=== PATIENT | female | born 1965 | race Caucasian/White ===

== ENCOUNTER → 2022-03-25 11:37 | Outpatient (CLI) | payer OTHER, SELFPAY ==
--- NOTE | 2022-03-25 12:27 | NM_ITS ---
APPROVED REPORT Exam: Nuclear Stress Test Indication: CHF, HTN, D.M., HYPERLIPIDEMIA, D.M., TOB USE, FM HX., SOB, FATIGUE Patient Location: Outpatient Stress Tech: Nan Llanos [place] Tech:Gillian Barfield, ARRT, RT (R)(N) Ht: 4 ft 9 in Wt: 152 lbs Bra Size: 34C HR: 84 bpm BP: 123/83 mmHg BSA: 1.60 m2 TID: 1.42 BMI: 32.8 History: CHF, HTN, D.M., HYPERLIPIDEMIA, D.M., TOB USE, FM HX., SOB, FATIGUE Procedure: Patient received a 0.4 mg of intravenous Lexiscan, resting heart rate 84 bpm, resting blood pressure 123/83 mmHg, with Lexiscan maximum heart rate achived was 102 bpm which is Less than 85 % of the maximum predicted heart rate and blood pressure was 140/85 mmHg. With Lexiscan, patient denied any complaint of chest pain. Electrocardiogram Resting electrocardiogram shows sinus rhythm, with Lexiscan there is less than 1.[address] segment depression noted from the baseline EKG. The EKG portion of the Lexiscan is nondiagnostic. Cardiac Stress and Resting SPECT Images: Cardiac Stress and Resting SPECT images were obtained using technetium 99m Myoview 29.8 mCi stress and 9.70 mCi at rest. Gated SPECT for analysis of segmental wall motion and calculation of the ejection fraction also done. Prone images were also obtained. Cardiac stress and rest SPECT images show uniform myocardial activity without segmental perfusion abnormality, computer derived ejection fraction is 62% with no regional wall motion abnormality, right ventricle is normal size and contractility, however there is transient ischemic dilatation of the left ventricle raising the concerns for presence of balanced ischemia or multivessel coronary artery disease. Conclusion: 1. The EKG portion of the Lexiscan is nondiagnostic. 2. No scintigraphic evidence of reversible ischemia seen, compared to ejection fraction 62% with no regional wall motion abnormality, right ventricle is normal size and contractility, however there is transient ischemic dilatation of the left ventricle seen, raising the concerns for presence of balanced ischemia or multivessel coronary artery disease. 3. Abnormal Lexiscan Myoview study. Electronically signed by : Ron Troncoso MD 03/25/2022 18:19:00
--- NOTE | 2022-03-25 12:30 | CA_ITS ---
APPROVED REPORT EXAM: Comprehensive 2D, Doppler, and color-flow Echocardiogram Customer Service Cashier: Maria E Schwab RVT Ht: 4 ft 9 in Wt: 152lbs BSA: 1.60 BP: 131/75 mmHg Indications: DYSPENA,CHF,ASTHMA,DM,SMOKER,COPD,FATIGUE,OBESITY 2D Dimensions LVOT 1.92 cm (M/F) 1.5-2.5 LA Volume 27.30 mL LA Volume Index 17.06 mL/m2 (M/F) 16-34 M-Mode Dimensions RVDd 2.65 cm (0.9-2.6) LA Diam 3.21 cm (1.9-4.0) LVDd 4.04 cm (3.5-5.7) Ao Diam 2.31 cm (2.0-3.7) LVDs 2.50 cm (3.5-5.7) IVSd 0.97 cm (0.6-1.1) PWd 0.64 cm (0.6-1.1) EF (Teich) 68.90% FS 38.10% EDV (Teich) 71.70 mL TAPSE 2.10 (<1.7) ESV (Teich) 22.30 mL LV Diastology E Decel Time 237.00 (160-240 msec) E/A Ratio 0.8 MED E' 6.40 (< 7 cm/sec) E'/MED E' Ratio 9.31 (>14) LAT E' 7.70 (<10 cm/sec) E/LAT E' Ratio 7.74 (>14) Aortic Valve AO Peak GR. 9.80 mmHg Mitral Valve MV E Max Kenneth. 60.00 (40-130 cm/s) MV A Velocity 75.00 (40-130 cm/s) E/A Ratio 0.80 MV Decel. Time 237.00 (160-240 ms) MV PHT 69.00 ms Pulmonary Valve PV Peak Velocity 101.00 (50-150 cm/s) Left Ventricle Left atrium is mildly enlarged, left ventricle normal size mild concentric left ventricular hypertrophy, estimated ejection fraction 55% with no regional wall motion abnormality, Doppler evidence of impaired LV relaxation seen. Right Ventricle Right atrium and right ventricle are mildly enlarged with normal contractility. Aortic Valve Aortic valve is minimally thickened and fibrosed there is no aortic stenosis or aortic insufficiency. Mitral Valve Mitral valve grossly normal, there is trace mitral regurgitation. Tricuspid Valve Tricuspid valve grossly normal, there is trace tricuspid regurgitation, tricuspid regurgitation jet velocity is inadequate for calculation of the right ventricular systolic pressure. Pulmonic Valve Pulmonic valve is poorly visualized. Great Vessels Aortic root is normal size. Inferior vena cava is poorly visualized. Pericardium No significant pericardial effusion noted. Conclusion 1. Mild biatrial enlargement, normal left ventricular size, estimated ejection fraction 55% with no regional wall motion abnormality, Doppler evidence of impaired LV relaxation seen. 2. Mildly enlarged right ventricle with normal contractility. 3. Trace mitral and tricuspid regurgitation. 4. No significant pericardial effusion noted. 5. Inferior vena cava is poorly visualized. Electronically signed by : Ron Troncoso MD 03/26/2022 05:53:08
[2022-03-25 12:52] LABS: Basophils # 0.2 K/mm3 (0-0.2); Basophils % 1.5 % (0.1-2.0); Eosinophils # 0.1 K/mm3 (0.0-0.4); Hematocrit 48.2 % (37.0-47.0); Hemoglobin 15.8 g/dL (12.2-16.2); Lymphocytes # 2.5 K/mm3 (0.7-4.5); Lymphocytes % 22.8 % (10-50); Mean Corpuscular HGB Conc 32.8 g/dL (31.8-35.4); Mean Corpuscular Hemoglobin 31.1 pg (27.0-31.2); Mean Corpuscular Volume 94.9 fl (81-99); Mean Platelet Volume 9.4 fl (7.4-10.4); Monocytes # 0.4 K/mm3 (0.1-1.0); Monocytes % 3.3 % (1.7-9.3); Neutrophils # 7.8 K/mm3 (1.8-7.8); Neutrophils % 71.4 % (37.0-80.0); Platelet Count 225 K/mm3 (142-424); Red Blood Count 5.08 M/mm3 (4.20-5.40); Red Cell Distribution Width 13.8 % (11.5-17.5)
[2022-03-25 13:07] LABS: Hemoglobin A1C 13.6 % (4.0-6.0)
[2022-03-25 13:35] LABS: Alanine Aminotransferase 30 U/L (12-78); Albumin Level 4.2 g/dl (3.5-5.0); Alkaline Phosphatase 135 U/L (38-126); Anion Gap 11.3 mEq/L (5-15); Aspartate Amino Transferase 36 U/L (14-36); Bilirubin,Direct 0.3 mg/dl (0.0-0.4); Bilirubin,Indirect 0.1 mg/dL (0.0-0.9); Bilirubin,Total 0.4 mg/dl (0.2-1.3); Bilirubin,Unconjugated 0.1 mg/dL (0.0-1.1); Blood Urea Nitrogen 10 mg/dl (7-17); Calcium 9.2 mg/dl (8.4-10.2); Carbon Dioxide 31 mmol/L (22.0-30.0); Chloride 99 mmol/L (98-107); Chol/HDL Ratio 7.8 (1-3.5); Cholesterol 279 mg/dl (140-200); Estimated Glomerular Filt Rate 129 ml/min (>60); GFR (African American) 156 ML/MIN (>60); Glucose 337 mg/dl (74-100); HDL Cholesterol 36 mg/dl (40-60); Potassium 4.3 mmoL/L (3.5-5.1); Sodium 137 mmol/L (136-145); Triglycerides 276 mg/dl (30-150); VLDL Cholesterol 55 mg/dL (0-40)
[2022-03-25 13:46] LABS: Direct LDL Cholesterol 187.56 mg/dL (100-129)
[2022-03-25 13:54] LABS: Free T4 (Free Thyroxine) 0.97 ng/dl (0.78-2.19)
--- NOTE | 2022-03-25 13:58 | HMH.ITSHM ---
Current Home Medications as stated by this patient Yuridia Bethea or personnel representative. []LISINOPRIL INSULIN
[2022-03-25 14:07] LABS: Thyroid Stimulating Hormone 0.19 uIU/mL (0.465-4.68)
--- NOTE | 2022-03-25 14:28 | CA_ITS ---
APPROVED REPORT Exam: Pharmacologic Technologist: Nan Llanos Ht: 4 ft 9 in Wt: 152 lbs BSA: 1.60 m2 HR: 86 bpm BP: 123/83 mmHg Indications: Dyspnea and CHF Medical History Medications: Lisinopril,,,,, INSULIN,,,,, Stress Test Details Test: LEXISCAN HR Resting HR: 84 bpm Max Heart Rate (APMHR): 166.183946 bpm Max HR Achieved: 105 bpm Target HR (85% APMHR): 141.106478 bpm % of APMHR: 63.25 Recovery HR: 94 bpm BP Resting BP: 123.0/83.0 mmHg Max BP: 140.0/85.0 mmHg Recovery BP: 126.0/80.0 mmHg ECG Resting ECG: Normal sinus rhythm Clinical Reason for Termination: Completed Protocol Exercise duration: 04:20 min Highest Stage Achieved: Stress ECG Conclusion Non-diagnostic lexiscan stress test. Patient received the infusion per protocol without chest pain, ST segment changes or arrhythmias. See the nuclear report for further information. Test Summary REST . . . . . . . Resting REST 09:18 . . 84 . 123/ 83 . . Stage 1 . . . . . . . Myoview Injected Stage 1 01:00 . . 102 . . . . Stage 2 01:00 . . 101 . 140/ 85 . . Stage 3 01:00 . . 98 . 133/ 85 . . Stage 4 01:00 . . 95 . 131/ 86 . . Stage 4 01:20 . . 94 . 131/ 86 . Stop exercise at 04:20 RECOVERY 01:00 . . 96 . . . . RECOVERY 02:00 . . 92 . . . . RECOVERY 03:00 . . 94 . 126/ 80 . . RECOVERY 03:15 . . 94 . 126/ 80 . . Electronically signed by : Ron Troncoso MD 03/25/2022 18:13:01
[2022-04-04 01:10] LABS: 1,25 Dihydroxy Vitamin D 64 pg/mL (.); 1,25-Dihydroxy, Vitamin D-2 <10 pg/mL (.); 1,25-Dihydroxy, Vitamin D-3 60 pg/mL (.)
== END ==
PROVIDERS: PCP Internal Medicine; Visit Provider Internal Medicine
DX: R06.00 Dyspnea, unspecified (principal); I50.9 Heart failure, unspecified; E11.9 Type 2 diabetes mellitus without complications; Z79.4 Long term (current) use of insulin; Z79.899 Other long term (current) drug therapy
CPT/HCPCS: 36415; 78452; 80048; 80061; 80076; 82652; 83036; 83735; 84439; 84443; 85025; 93017; 93306; A9502; J2785

== ENCOUNTER 2022-04-03 09:13 | Day surgery (SDC) | payer OTHER, SELFPAY ==
[2022-04-03] VITALS (14 sets, daily range): BP systolic 79–115; BP diastolic 40–66; PULSE 67–78; RESP 18–19; O2SAT 95–96; BMI 33.0
--- NOTE | 2022-04-03 07:03 | IR_ITS ---
APPROVED REPORT Patient Location: Outpatient Farm Machine Operator: MARIO Warren RT (R) PROCEDURES Left heart catheterization Left ventriculogram Selective coronary angiogram INDICATION High risk abnormal Myoview, Angina pectoris, Informed consent was obtained prior to the procedure. COMPLICATIONS None Estimated Blood Loss: Less than 10 mls TECHNIQUE One percent lidocaine used to anesthetize the right anterior aspect of the wrist. The right radial artery was accessed via the Seldinger technique. A 6 Togolese sheath was placed in the right radial artery. 2.5 mg of verapamil, 800 mcg of nitroglycerin, 1mg Lidocaine and 5000 U Heparin were given through the arterial sheath. The papa catheter was also used to perform left heart catheterization, left ventriculogram and selective coronary angiogram. At the end of the procedure the sheath was removed good hemostasis was achieved using Traclet band, patient was transferred to the postop holding area in stable condition. ANGIOGRAPHIC RESULTS The left main artery Normal The left anterior descending artery Normal The circumflex artery Normal The right coronary artery Dominant normal The FINN ventriculogram reveals Normal 65% The left ventricular end-diastolic pressure 25 to 30 mmHg IMPRESSION Normal coronary arteries Normal ejection fraction Severely elevated LVEDP consistent with severe diastolic dysfunction PLAN 1. Treatment of diastolic dysfunction which is etiology for patient's angina and high risk abnormal Myoview Electronically signed by : Maciel Montiel MD 04/03/2022 10:35:33
== END 2022-04-03 13:44 | disposition home or self-care (01) ==
PROVIDERS: PCP Internal Medicine; Visit Provider Internal Medicine
DX: I20.8 Other forms of angina pectoris (principal); R94.39 Abnormal result of other cardiovascular function study; I11.0 Hypertensive heart disease with heart failure; I50.9 Heart failure, unspecified; E11.9 Type 2 diabetes mellitus without complications; Z79.4 Long term (current) use of insulin; F17.210 Nicotine dependence, cigarettes, uncomplicated
CPT/HCPCS: 93458; 99152; C1725; C1769; J1644; Q9967